=== PATIENT | female | born 1980 | race Hispanic/Latino ===

== ENCOUNTER 2018-08-01 18:30 | Emergency (ER) | payer SELFPAY ==
--- NOTE | 2018-08-01 19:24 | RAD REPORT ---
EXAM DESCRIPTION: Artie Single View08/01/2018 7:17 pm CLINICAL HISTORY: Chest pain COMPARISON: none FINDINGS: The lungs appear clear of acute infiltrate. The heart is normal size IMPRESSION: No acute abnormalities displayed
[2018-08-01 19:33] LABS: Absolute Lymphocytes (CBC) 3.1 K/uL (0.7-4.9); Absolute Monocytes 0.4 K/uL (0.1-1.3); Absolute Neutrophil 7.5 K/uL (1.8-8.0); Basophils % 0.7 % (0-1.3); Eosinophils % 4.2 % (0-4.4); Hematocrit 31.4 % (36.0-45.0); Lymphocytes % 26.7 % (15.3-44.8); MPV 8.7 fL (7.6-11.3); Monocytes % 3.8 % (3.3-12.3); RBC Red Blood Cell Count 4.85 M/uL (3.86-4.86)
[2018-08-01 19:36] LABS: Protime INR 1.06
[2018-08-01] MEDS ORDERED: LEVALBUTEROL 1.25 MG/3 ML NEB ONE (19:37)
[2018-08-01] MEDS ORDERED: NA CHLORIDE 0.9% 1,000 ML ONE (19:37)
[2018-08-01 19:47] LABS: ALT/SGPT 19 U/L (12-78); AST/SGOT 8 U/L (15-37); Albumin 3.8 g/dL (3.4-5.0); Alkaline Phosphatase 106 U/L (45-117); BUN Blood Urea Nitrogen 18 mg/dL (7-18); Bicarbonate 24 mmol/L (21-32); Bilirubin Direct < 0.1 mg/dL (0-0.2); Bilirubin Total 0.3 mg/dL (0.2-1.0); Glucose Level 112 mg/dL (74-106); Magnesium 2.2 mg/dL (1.8-2.4); NT PRO-BNP 19 pg/mL (<125); Potassium 3.4 mmol/L (3.5-5.1); Protein, Total 8.1 g/dL (6.4-8.2); Sodium Level 144 mmol/L (136-145); Troponin (Emerg Dept Use Only) < 0.02 ng/mL (0.0-0.045)
[2018-08-01 19:54] LABS: Urine Blood NEGATIVE (NEG); Urine Glucose NEGATIVE (NEG); Urine Protein TRACE (NEG)
[2018-08-01] MEDS ORDERED: METHYLPREDNISOLONE 125 MG INJ ONE (20:15)
[2018-08-01] MEDS ORDERED: POTASSIUM 25 MEQ EFFERV TAB ONE (20:15)
[2018-08-01 20:21] LABS: Platelet Estimate ADEQ; Urine White Blood Cell Casts OK
[2018-08-01 20:22] LABS: Blood Morphology Comment NOTED (NOT SEEN); Hypochromasia 1+
--- NOTE | 2018-08-01 21:04 | EDPHYS ---
Physician Documentation [facility] Name: Pam Barone Age: 38 yrs Sex: Female : 1980 Arrival Date: 08/01/2018 Time: 18:32 Bed 5 Private MD: ED Physician Christopher Coppola HPI: 08/01 19:05 This 38 yrs old Female presents to ER via Ambulatory with complaints of Chest cp Pain, Headache, Nausea, Breathing Difficulty. 19:05 The patient has shortness of breath at rest. cp 19:05 Onset: The symptoms/episode began/occurred 2-3 weeks ago. Duration: The symptoms are cp continuous, and are steadily getting worse. The patient's shortness of breath is aggravated by light activity. The patient or guardian reports chest pain that is located primarily in the anterior chest wall, bilaterally. Associated signs and symptoms: Pertinent negatives: productive cough, diaphoresis, fever, hemoptysis, syncope. Severity of symptoms: in the emergency department the symptoms are unchanged. The patient has experienced a previous episode, to when diagnosed with anemia. 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 - Social history:: Smoking status: Patient uses tobacco products, smokes one pack cigarettes per day. - Ebola Screening: : No symptoms or risks identified at this time. ROS: 19:10 Constitutional: Negative for body aches, chills, fever, poor PO intake. cp 19:10 Eyes: Negative for injury, pain, redness, and discharge. cp 19:10 ENT: Negative for drainage from ear(s), ear pain, sore throat, difficulty swallowing, difficulty handling secretions. 19:10 Cardiovascular: Positive for chest pain, Negative for edema, palpitations. 19:10 Respiratory: Positive for shortness of breath, at rest. Negative for cough. 19:10 Abdomen/GI: Negative for abdominal pain, vomiting, diarrhea, constipation, black/tarry stool, rectal bleeding. 19:10 Back: Negative for pain at rest, pain with movement. 19:10 : Negative for urinary symptoms, vaginal bleeding. 19:10 Skin: Negative for cellulitis, rash. 19:10 Neuro: Positive for headache, Negative for altered mental status, syncope, weakness. 19:10 All other systems are negative. Exam: 18:55 ECG was reviewed by the Attending Physician. cp 19:15 Constitutional: The patient appears in no acute distress, alert, awake, cp non-diaphoretic, non-toxic, well developed, well nourished. 19:15 Head/Face: Normocephalic, atraumatic. Eyes: Pupils equal round and reactive to light, cp extra-ocular motions intact. Lids and lashes normal. Conjunctiva and sclera are non-icteric and not injected. Cornea within normal limits. Periorbital areas with no swelling, redness, or edema. ENT: Nares patent. No nasal discharge, no septal abnormalities noted. Tympanic membranes are normal and external auditory canals are clear. Oropharynx with no redness, swelling, or masses, exudates, or evidence of obstruction, uvula midline. Mucous membranes moist. Chest/axilla: Normal chest wall appearance and motion. Nontender with no deformity. No lesions are appreciated. 19:15 Cardiovascular: Rate: tachycardic, Rhythm: regular, Heart sounds: murmur, not appreciated, Edema: is not appreciated, JVD: is not appreciated. 19:15 Respiratory: the patient does not display signs of respiratory distress, Respirations: normal, labored breathing, that is mild, intercostal retractions, are absent, tachypnea, is not appreciated, Breath sounds: decreased breath sounds, that are mild, are located in both bases, stridor, is not appreciated, wheezing: is not appreciated. 19:15 Abdomen/GI: Inspection: abdomen appears normal, Palpation: abdomen is soft and non-tender, in all quadrants. 19:15 Back: pain, is absent, ROM is normal. 19:15 Skin: no rash present. 19:15 Neuro: Orientation: to person, place \T\ time. Mentation: is normal, Cerebellar function: is grossly normal, Motor: is normal, Sensation: is normal. Vital Signs: 18:36 BP 143 / 91; Pulse 109; Resp 18; Temp 98.1; Pulse Ox 98% on R/A; Weight 113.4 kg; la1 Height 5 ft. 8 in. (172.72 cm); 19:30 BP 118 / 82; Pulse 95; Resp 15; Pulse Ox 99% on R/A; bp 20:36 BP 122 / 57; Pulse 88; Resp 18; Pulse Ox 100% on R/A; bp 21:19 BP 101 / 87; Pulse 75; Resp 18; Pulse Ox 100% on R/A; bp 18:36 Body Mass Index 38.01 (113.40 kg, 172.72 cm) la1 MDM: 18:45 Patient medically screened. 21:00 Data reviewed: vital signs, nurses notes, lab test result(s), EKG, radiologic studies, cp plain films, and as a result, I will discharge patient. 21:00 Antibiotic administration: Not indicated, the patient does not have an appreciated cp infiltrate. Test interpretation: by ED physician or midlevel provider: ECG. 21:00 ED course: VSS. Discussed results of labs and chest xray. Patient reports she has taken oral iron in the past for anemia. Will discharge to home for continued monitoring. 08/01 19:04 Order name: Basic Metabolic Panel 08/01 19:04 Order name: CBC with Diff; Complete Time: 20:45 08/01 19:57 Interpretation: Normal except: WBC 11.6; HGB 9.7; HCT 31.4; MCV 64.7; MCH 20.0; MCHC cp 30.9; PLT 453; RDW 17.6. 08/01 19:04 Order name: LFT's; Complete Time: 19:58 08/01 20:07 Interpretation: Normal except: AST 8; GLOB 4.3; A/G 0.9. 08/01 19:04 Order name: Magnesium; Complete Time: 19:58 08/01 19:04 Order name: NT PRO-BNP; Complete Time: 19:58 cp 08/01 19:04 Order name: PT-INR; Complete Time: 19:56 08/01 19:04 Order name: Troponin (emerg Dept Use Only); Complete Time: 19:58 08/01 20:08 Interpretation: Reviewed. 08/01 19:04 Order name: XRAY Chest (1 view); Complete Time: 19:56 08/01 19:04 Order name: D-Dimer; Complete Time: 19:56 08/01 20:08 Interpretation: D-DIMER 239; Reviewed. cp 08/01 19:04 Order name: Basic Metabolic Panel; Complete Time: 19:58 EDMS 08/01 20:08 Interpretation: Normal except: K 3.4; CL 111; GLUC 112; GFR 78. cp 08/01 19:34 Order name: CBC Smear Scan; Complete Time: 20:45 EDMS 08/01 19:47 Order name: Urine Dipstick--Ancillary (enter results); Complete Time: 19:58 cm6 08/01 19:47 Order name: Urine --Ancillary (enter results); Complete Time: 19:58 cm6 08/01 19:04 Order name: EKG; Complete Time: 19:05 cp 08/01 19:04 Order name: Cardiac monitoring; Complete Time: 19:06 cp 08/01 19:04 Order name: EKG - Nurse/Tech; Complete Time: 19:07 cp 08/01 19:04 Order name: IV Saline Lock; Complete Time: 19:22 cp 08/01 19:04 Order name: Labs collected and sent; Complete Time: 19:22 cp 08/01 19:04 Order name: O2 Per Protocol; Complete Time: 19:06 cp 08/01 19:04 Order name: O2 Sat Monitoring; Complete Time: 19:06 cp EC:55 Rate is 95 beats/min. Rhythm is regular. [place] interval is normal. QRS interval is normal. cp QT interval is normal. T waves are Flattened in lead aVL. Interpreted by me. Reviewed by me. Administered Medications: 19:25 Drug: Xopenex (3) 1.25 mg Route: Inhalation; bp 19:25 Drug: NS 0.9% 1000 ml Route: IV; Rate: 1 bolus; Site: right antecubital; bp 21:22 Follow up: IV Status: Completed infusion; IV Intake: 1000ml bp 20:07 Drug: Potassium Effervescent Tablet 25 mEq Route: PO; tl1 21:22 Follow up: Response: No adverse reaction bp 20:08 Drug: SOLU-Medrol 125 mg Route: IVP; Infused Over: 2 mins; Site: right antecubital; tl1 21:00 Follow up: Response: No adverse reaction bp Disposition: 08/01/18 21:03 Discharged to Home. Impression: Anemia in other chronic diseases classified elsewhere, Shortness of breath, Other chest pain. - Condition is Stable. - Discharge Instructions: Iron Deficiency Anemia, Adult, Anemia, Nonspecific, Nonspecific Chest Pain, Shortness of Breath. - Prescriptions for Medrol (Michael) 4 mg Oral Tablets, Dose Pack - take 1 tablet by ORAL route as directed - follow package instructions; 1 packet. Albuterol Sulfate 90 mcg/actuation - inhale 1-2 puff by INHALATION route every 4-6 hours; 1 Inhaler. Ferrous Sulfate 325 mg (65 mg Iron) Oral Tablet - take 1 tablet by ORAL route 2 times per day for 30 days; 60 tablet. - Medication Reconciliation Form, Thank You Letter, Antibiotic Education, Prescription Opioid Use form. - Follow up: Private Physician; When: 2 - 3 days; Reason: Recheck today's complaints. - Problem is new. - Symptoms have improved. Addendum: 08/03/2018 08:10 Co-signature as Attending Physician, Christopher Coppola MD Available for consultation at p s1 all times. . Signatures: Dispatcher [employer] EDNghia Mills RN RN la1 Nilda Hdz RN RN tl1 Liam Hernandes PA PA cp Peltier, Brian, RN RN bp Christopher Coppola MD MD ps1 Corrections: (The following items were deleted from the chart) 08/01 21:25 21:03 08/01/2018 21:03 Discharged to Home. Impression: Anemia in other chronic diseases tl1 classified elsewhere; Shortness of breath; Other chest pain. Condition is Stable. Forms are Medication Reconciliation Form, Thank You Letter, Antibiotic Education, Prescription Opioid Use. Follow up: Private Physician; When: 2 - 3 days; Reason: Recheck today's complaints. Problem is new. Symptoms have improved. cp
--- NOTE | 2018-08-01 21:04 | ER ---
Nurse's Notes [facility] Name: Pam Barone Age: 38 yrs Sex: Female : 1980 Arrival Date: 08/01/2018 Time: 18:32 Bed 5 Private MD: Diagnosis: Anemia in other chronic diseases classified elsewhere;Shortness of breath;Other chest pain Presentation: 08/01 18:35 Presenting complaint: Patient states: I have been getting SOB and chest pain with any la1 exertion for the last 2-3 weeks and it is getting worse, pt reports hx of anemia, last transfusion one year ago. Pt reports very heavy periods. Transition of care: patient was not received from another setting of care. Onset of symptoms was August 01, 2018. Risk Assessment: Do you want to hurt yourself or someone else? Patient reports no desire to harm self or others. Initial Sepsis Screen: Does the patient meet any 2 criteria? No. Patient's initial sepsis screen is negative. Does the patient have a suspected source of infection? No. Patient's initial sepsis screen is negative. Care prior to arrival: None. 18:35 Method Of Arrival: Ambulatory la1 18:35 Acuity: QAMAR 3 la1 Triage Assessment: 18:40 General: Appears in no apparent distress. comfortable, obese, Behavior is cooperative, bp appropriate for age, anxious. Pain: Complains of pain in chest. EENT: No deficits noted. Neuro: Level of Consciousness is awake, alert, obeys commands, Oriented to person, place, time, situation, Appropriate for age. Cardiovascular: Rhythm is sinus tachycardia. Respiratory: Reports shortness of breath Airway is patent Respiratory effort is even, Respiratory pattern is hyperventilation. GI: No signs and/or symptoms were reported involving the gastrointestinal system. : Reports HEAVY PERIODS. Derm: Skin is pale. Musculoskeletal: Circulation, motion, and sensation intact. Range of motion: intact in all extremities. 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 - Social history:: Smoking status: Patient uses tobacco products, smokes one pack cigarettes per day. - Ebola Screening: : No symptoms or risks identified at this time. Screenin:47 Abuse screen: Denies threats or abuse. Denies injuries from another. Nutritional bp screening: No deficits noted. Tuberculosis screening: No symptoms or risk factors identified. Fall Risk None identified. Assessment: 18:47 General: SEE TRIAGE NOTE. bp 19:11 General: Appears in no apparent distress. uncomfortable, Behavior is calm, cooperative, bp appropriate for age. Pain: Complains of pain in chest Pain does not radiate. Neuro: Level of Consciousness is awake, alert, obeys commands, Oriented to person, place, time, situation. Cardiovascular: Chest pain is described as vague. Respiratory: Reports shortness of breath on exertion labored breathing Airway is patent Respiratory effort is even, labored, Respiratory pattern is regular, symmetrical. Respiratory: GI: No signs and/or symptoms were reported involving the gastrointestinal system. : Reports vaginal bleeding that is heavy flow "10 day periods". Derm: Skin is pale. 20:00 Reassessment: Patient appears in no apparent distress at this time. Patient and/or bp family updated on plan of care and expected duration. Pain level reassessed. Patient is alert, oriented x 3, equal unlabored respirations, skin warm/dry/pink. Reassessment: Patient appears in no apparent distress at this time. Patient and/or family updated on plan of care and expected duration. Pain level reassessed. Patient is alert, oriented x 3, equal unlabored respirations, skin warm/dry/pink. pt verbalized understanding of discharge instructions, need for follow up and prescription usage Patient states feeling better. 21:24 Pain: Pain began gradually. tl1 Vital Signs: 18:36 BP 143 / 91; Pulse 109; Resp 18; Temp 98.1; Pulse Ox 98% on R/A; Weight 113.4 kg; la1 Height 5 ft. 8 in. (172.72 cm); 19:30 BP 118 / 82; Pulse 95; Resp 15; Pulse Ox 99% on R/A; bp 20:36 BP 122 / 57; Pulse 88; Resp 18; Pulse Ox 100% on R/A; bp 21:19 BP 101 / 87; Pulse 75; Resp 18; Pulse Ox 100% on R/A; bp 18:36 Body Mass Index 38.01 (113.40 kg, 172.72 cm) la1 Vitals: 19:30 Cardiac Rhythm Assessment Sinus rhythm. bp ED Course: 18:32 Patient arrived in ED. rg4 18:36 Triage completed. la1 18:37 Arm band placed on left wrist. la1 18:39 Liam Hernandes PA is PHCP. cp 18:39 Christopher Coppola MD is Attending Physician. cp 18:40 Javon Senior, YAHIR is Primary Nurse. bp 18:47 Patient has correct armband on for positive identification. Placed in gown. Bed in low bp position. Call light in reach. Side rails up X2. marketing services coordinator on. Pulse ox on. NIBP on. 19:15 Inserted saline lock: 20 gauge in right antecubital area, using aseptic technique. bp Blood collected. 19:16 XRAY Chest (1 view) In Process Unspecified. EDMS 19:29 Patient maintains SpO2 saturation greater than 95% on room air. bp 19:55 Primary Nurse role handed off by Javon Senior, YAHIR ed1 20:00 No provider procedures requiring assistance completed. IV discontinued, intact, bp bleeding controlled, No redness/swelling at site. Pressure dressing applied. 20:35 Javon Senior, RN is Primary Nurse. bp Administered Medications: 19:25 Drug: Xopenex (3) 1.25 mg Route: Inhalation; bp 19:25 Drug: NS 0.9% 1000 ml Route: IV; Rate: 1 bolus; Site: right antecubital; bp 21:22 Follow up: IV Status: Completed infusion; IV Intake: 1000ml bp 20:07 Drug: Potassium Effervescent Tablet 25 mEq Route: PO; tl1 21:22 Follow up: Response: No adverse reaction bp 20:08 Drug: SOLU-Medrol 125 mg Route: IVP; Infused Over: 2 mins; Site: right antecubital; tl1 21:00 Follow up: Response: No adverse reaction bp Intake: 21:22 IV: 1000ml; Total: 1000ml. bp Outcome: 20:00 Discharged to home ambulatory. bp 20:00 Condition: stable 20:00 Discharge instructions given to patient, Instructed on discharge instructions, follow up and referral plans. medication usage, Demonstrated understanding of instructions, follow-up care, medications, Prescriptions given X 2. 21:03 Discharge ordered by . cp 21:25 Patient left the ED. tl1 Signatures: Dispatcher [employer] EDMS Janey Gutiérrez, RN RN ed1 Nghia Jimenez RN RN la1 Nilda Hdz, RN RN tl1 Liam Hernandes PA PA cp Garcia, Rubi rg4 Javon Senior, RN RN bp Corrections: (The following items were deleted from the chart) 18:37 18:35 Presenting complaint: Patient states: I have been getting SOB and chest pain with la1 any exertion for the last 2-3 weeks and it is getting worse, pt reports hx of anemia, last transfusion one year ago. la1
--- NOTE | 2018-08-03 05:55 | EKG ---
Test Date: 2018-08-01 Test Time: 18:49:44 Plywood Patcher: NATHALIA MEASUREMENT RESULTS: Intervals: Rate: 95 [place]: 140 QRSD: 82 QT: 344 QTc: 432 [place]: P: 40 [place]: 140 QRS: 38 T: 64 INTERPRETIVE STATEMENTS: Normal sinus rhythm Normal ECG No previous ECG available for comparison Electronically Signed On 08-03-18 05:54:17 CDT by Vel Guevara
== END 2018-08-01 21:25 | disposition home or self-care (01) ==
LOC: ER 18:30
DX: D64.9 Anemia, unspecified (principal); R07.89 Other chest pain; R06.02 Shortness of breath; E11.9 Type 2 diabetes mellitus without complications; I10 Essential (primary) hypertension; F17.210 Nicotine dependence, cigarettes, uncomplicated
CPT/HCPCS: 36415; 71045; 80048; 80076; 81003; 81025; 83735; 83880; 84484; 85025; 85379; 85610; 93005; 96361; 96374; 99285; J2930; J7030